=== PATIENT | male | born 1945 ===

== ENCOUNTER 2021-01-01 10:29 | Emergency (ER) | payer MEDICARE ==
[~2021-01-01] VITALS: Ht 172.7 cm; Wt 72.6 kg
[2021-01-01 10:30] VITALS: BP 164/91
[2021-01-01 12:10] LABS: APPEARANCE,URINE TURBID (CLEAR); BILIRUBIN,URINE MODERATE (NEGATIVE); GLUCOSE, URINE (UA) NEGATIVE (NEGATIVE); KETONES,URINE 5 mg/dL (NEGATIVE); LEUKOCYTE ESTERASE ,URINE TRACE (NEGATIVE); NITRATE,URINE POSITIVE (NEGATIVE); OCCULT BLOOD,URINE LARGE (NEGATIVE); PROTEIN,URINE 100 mg/dL (NEGATIVE)
[2021-01-01 12:19] LABS: COLOR,URINE RED (YELLOW)
[2021-01-01 12:29] LABS: RBC,URINE TNTC /HPF (0-1)
[2021-01-01 12:30] LABS: BACTERIA,URINE Rare /HPF (None Seen); SQUAMOUS EPITHELIAL CELL,UR Rare /HPF (0-2)
[2021-01-01] MEDS ORDERED: TAMS-1 PO (15:07)
[2021-01-01] MEDS ORDERED: CEPH500B PO (15:07)
== END 2021-01-01 15:22 | disposition home or self-care (01) ==
LOC: EDH 10:29
DX: N39.0 Urinary tract infection, site not specified (principal); I48.91 Unspecified atrial fibrillation; I25.10 Atherosclerotic heart disease of native coronary artery without angina pectoris; E78.00 Pure hypercholesterolemia, unspecified; I10 Essential (primary) hypertension; Z88.8 Allergy status to other drugs, medicaments and biological substances; Z88.1 Allergy status to other antibiotic agents; Z79.899 Other long term (current) drug therapy
CPT/HCPCS: 74176; 81001; 87088